=== PATIENT | female | born 1950 | race Hispanic/Latino ===

== ENCOUNTER 2018-04-22 11:34 | Emergency (ER) | payer MEDICARE ==
[~2018-04-22 11:34] MED LIST: ACET-2247 PO; AMLO5TAB4 PO; ATOR40TA69 PO; CARV12.511 PO; CINA90TA PO; FISH1CAP27 PO; FOLI0.8T PO; FOLI1TAB61 PO; FOLI1TAB85 PO; GUAI240S8 PO; LORA10TA7 PO; LOSA100T2 PO; MECL25TA3 PO; POLY30DR OP; RANI150T7 PO; SERT25TA5 PO; SEVE800 PO; SEVE800T7 PO; VITA400C70 PO
[2018-04-22 12:30] LABS: BASOPHILS % (AUTO) 1.4 % (0.0-5.0); EOSINOPHILS % (AUTO) 3.4 % (0.0-8.0); HEMATOCRIT 32.2 % (36-48); MEAN CORPUSCULAR HEMOGLOBIN 32.7 pg (27.0-33.0); MEAN CORPUSCULAR HGB CONC 33.9 g/dL (32.0-36.0); MEAN CORPUSCULAR VOLUME 96.4 fL (79-99); NEUTROPHILS % (AUTO) 76.2 % (40.0-77.0); NUCLEATED RED BLOOD CELLS 0.1 % (0.0-0.19); PLATELET COUNT (AUTO) 101 K/uL (130-400); RED BLOOD CELL COUNT(AUTO) 3.34 MIL/uL (4.00-5.50); RED CELL DISTRIBUTION WIDTH 15.2 % (11.0-15.5); WHITE BLOOD COUNT (AUTO) 5.3 K/uL (4.8-10.8)
[2018-04-22 12:40] LABS: CREATININE 3.9 mg/dL (0.5-1.5); POTASSIUM 4.7 mmol/L (3.5-5.1)
== END 2018-04-22 14:44 | disposition home or self-care (01) ==
LOC: EDH 11:34
DX: S09.90XA Unspecified injury of head, initial encounter (principal); R42 Dizziness and giddiness; M54.2 Cervicalgia; N18.6 End stage renal disease; I50.9 Heart failure, unspecified; Z95.810 Presence of automatic (implantable) cardiac defibrillator; Z88.8 Allergy status to other drugs, medicaments and biological substances; Z99.2 Dependence on renal dialysis; W18.39XA Other fall on same level, initial encounter; Y93.01 Activity, walking, marching and hiking; Y92.89 Other specified places as the place of occurrence of the external cause; Y99.8 Other external cause status
CPT/HCPCS: 36415; 70450; 72125; 73030; 80048; 84484; 85025; 93005

== ENCOUNTER → 2019-02-05 | Outpatient (CLI) | payer MEDICARE ==
[~2019-02-05] MED LIST changes: -SEVE800 PO; -SEVE800T7 PO; +SUCR500T PO
== END | disposition home or self-care (01) ==
LOC: RAH 10:00
PROVIDERS: ATTEND Internal Medicine
DX: N63.21 Unspecified lump in the left breast, upper outer quadrant (principal); R91.8 Other nonspecific abnormal finding of lung field; E78.2 Mixed hyperlipidemia; I10 Essential (primary) hypertension
CPT/HCPCS: 76641; 77066

== ENCOUNTER → 2019-02-23 | Outpatient (CLI) | payer MEDICARE ==
[2019-02-23 08:57] LABS: INR 0.99 (0.85-1.15); PARTIAL THROMBOPLASTIN TIME 26.4 SEC (26.3-35.5); PROTHROMBIN TIME 10.4 SEC (9.6-11.6)
== END | disposition home or self-care (01) ==
LOC: RAH 08:16 → EDSTATUS 10:00
PROVIDERS: ATTEND Internal Medicine
DX: N63.22 Unspecified lump in the left breast, upper inner quadrant (principal); I13.2 Hypertensive heart and chronic kidney disease with heart failure and with stage 5 chronic kidney disease, or end stage renal disease; I50.42 Chronic combined systolic (congestive) and diastolic (congestive) heart failure; E11.22 Type 2 diabetes mellitus with diabetic chronic kidney disease; N18.6 End stage renal disease; E78.5 Hyperlipidemia, unspecified; Z99.2 Dependence on renal dialysis
CPT/HCPCS: 36415; 76642; 85610; 85730

== ENCOUNTER → 2019-05-19 | Outpatient (CLI) | payer MEDICARE ==
[~2019-05-19] MED LIST changes: +VITA-164 PO; -VITA400C70 PO
== END | disposition home or self-care (01) ==
LOC: RAH 09:39
PROVIDERS: ATTEND Otolaryngology Plastic Surgery within the Head & Neck
DX: R13.10 Dysphagia, unspecified (principal); K21.9 Gastro-esophageal reflux disease without esophagitis
CPT/HCPCS: 74220

== ENCOUNTER → 2020-12-09 | Outpatient (CLI) | payer MEDICARE ==
[~2020-12-09] MED LIST changes: -FOLI0.8T PO; +FOLI0.8T3 PO; +SERT-438 PO; -SERT25TA5 PO
== END | disposition home or self-care (01) ==
LOC: RAH 11:21
PROVIDERS: ATTEND Internal Medicine Cardiovascular Disease
DX: I51.7 Cardiomegaly (principal); J44.9 Chronic obstructive pulmonary disease, unspecified; R09.89 Other specified symptoms and signs involving the circulatory and respiratory systems
CPT/HCPCS: 71046

== ENCOUNTER 2021-10-05 21:15 | Emergency (ER) | payer MEDICARE ==
[~2021-10-05] VITALS: Ht 154.9 cm; Wt 73.0 kg
[2021-10-05 22:30] VITALS: BP 162/85
== END 2021-10-05 22:59 | disposition home or self-care (01) ==
LOC: EDH 21:15
DX: S80.02XA Contusion of left knee, initial encounter (principal); S00.03XA Contusion of scalp, initial encounter; S09.90XA Unspecified injury of head, initial encounter; I10 Essential (primary) hypertension; M19.90 Unspecified osteoarthritis, unspecified site; Z79.899 Other long term (current) drug therapy; Z98.890 Other specified postprocedural states; W01.0XXA Fall on same level from slipping, tripping and stumbling without subsequent striking against object, initial encounter; Y93.89 Activity, other specified; Y92.89 Other specified places as the place of occurrence of the external cause; Y99.8 Other external cause status
CPT/HCPCS: 70450; 73562

== ENCOUNTER 2021-12-12 06:07 | Day surgery (SDC) | payer MEDICARE ==
[2021-12-07 14:35] LABS: BASOPHILS % (AUTO) 1.5 % (0.0-5.0); EOSINOPHILS % (AUTO) 1.7 % (0.0-8.0); HEMATOCRIT 36.4 % (36-48); LYMPHOCYTES % (AUTO) 24.7 % (21.0-51.0); MEAN CORPUSCULAR HEMOGLOBIN 31.9 pg (27.0-33.0); MEAN CORPUSCULAR HGB CONC 32.4 g/dL (32.0-36.0); MEAN CORPUSCULAR VOLUME 98.4 fL (79-99); MONOCYTES % (AUTO) 9.4 % (3.0-13.0); NEUTROPHILS % (AUTO) 62.3 % (40.0-77.0); PLATELET COUNT (AUTO) 89 K/uL (130-400); RED CELL DISTRIBUTION WIDTH 13.5 % (11.0-15.5); WHITE BLOOD COUNT (AUTO) 4.8 K/uL (4.8-10.8)
[2021-12-07 14:48] LABS: CREATININE 5.6 mg/dL (0.5-1.5); POTASSIUM 5.5 mmol/L (3.5-5.1)
[2021-12-07 14:49] LABS: INR 0.99 (0.85-1.15); PROTHROMBIN TIME 10.8 SEC (9.6-11.6)
[2021-12-07 14:50] LABS: PARTIAL THROMBOPLASTIN TIME 28.2 SEC (26.3-35.5)
[2021-12-07 15:04] LABS: B-TYPE NATRIURETIC PEPTIDE 3890 pg/mL (0-100)
[2021-12-11 18:14] VITALS: BP_SYST 186; BP_SYST 198; BP_DIAS 64; BP_DIAS 78
[2021-12-12] VITALS (9 sets, daily range): BP systolic 143–214; BP diastolic 16–87
[~2021-12-12] VITALS: Ht 154.9 cm; Wt 69.3 kg
[~2021-12-12 06:07] MED LIST changes: +0.9% NACL 500ML IV.SOLN 500 ML IV SCH
[2021-12-12] MEDS ORDERED: DICL20GE TP (07:11)
[2021-12-12] MEDS ORDERED: FLUT16H NASAL (07:11)
[2021-12-12] MEDS ORDERED: OMEP20CA12 PO (07:11)
[2021-12-12] MEDS ORDERED: SACU1TAB7 PO (07:11)
[2021-12-12] MEDS ORDERED: BIMA12.5OS OU (07:11)
[2021-12-12] MEDS ORDERED: SEVE2.4P3 PO (07:11)
[2021-12-12] MEDS ORDERED: SODIUM BICARB 50MEQ 50ML VIAL 50 ML ONE (07:15)
[2021-12-12] MEDS ORDERED: NITROGLYCERIN 50MG VIAL ONE (07:15)
[2021-12-12] MEDS ORDERED: LIDOCAINE HCL 400MG/20ML VIAL ONE (07:16)
[2021-12-12] MEDS ORDERED: IOHEXOL-350 50ML VIAL IV ONE (07:16)
[2021-12-12] MEDS ORDERED: IOHEXOL 350 MG/ML 100ML INFUS..BTL IV ONE (07:16)
[2021-12-12] MEDS ORDERED: MIDAZOLAM HCL 1 MG/ML 2ML VIAL ONE (07:48)
[2021-12-12] MEDS ORDERED: FENTANYL CITRATE PF 50 MCG/1 ML 2ML VIAL ONE (07:48)
[2021-12-12] MEDS ORDERED: LABETALOL 20MG VIAL IV ONE (08:17)
== END 2021-12-12 11:30 | disposition home or self-care (01) ==
LOC: DAH 06:07
PROVIDERS: ATTEND Internal Medicine Cardiovascular Disease
DX: I25.10 Atherosclerotic heart disease of native coronary artery without angina pectoris (principal); I13.2 Hypertensive heart and chronic kidney disease with heart failure and with stage 5 chronic kidney disease, or end stage renal disease; N18.6 End stage renal disease; I50.42 Chronic combined systolic (congestive) and diastolic (congestive) heart failure; E78.00 Pure hypercholesterolemia, unspecified; Z79.01 Long term (current) use of anticoagulants; Z82.49 Family history of ischemic heart disease and other diseases of the circulatory system; Z83.3 Family history of diabetes mellitus; Z79.899 Other long term (current) drug therapy; Z99.2 Dependence on renal dialysis
CPT/HCPCS: 80048; 83880; 85025; 85610; 85730; 36415; 71045; 93005; 93458; C1894 ×2; C1760; J3010; J3490 ×3; J2250; J1644; Q9967 ×2; A4215; A4222; A4221; A4663; A4216; A4606; Q9965; A4223 ×3; 99156; 99157

== ENCOUNTER 2022-08-23 14:12 | Inpatient (IN) | payer OTHER, MEDICARE ==
[~2022-08-23] VITALS: Ht 154.9 cm; Wt 65.6 kg
[~2022-08-23 14:12] MED LIST changes: -0.9% NACL 500ML IV.SOLN 500 ML IV SCH; -ACET-2247 PO; -AMLO5TAB4 PO; +BIMA12.5OS OU; -CINA90TA PO; +DICL20GE TP; -FISH1CAP27 PO; +FLUT16H NASAL; -FOLI0.8T3 PO; -FOLI1TAB61 PO; -GUAI240S8 PO; -LORA10TA7 PO; -LOSA100T2 PO; -MECL25TA3 PO; +OMEP20CA12 PO; -POLY30DR OP; -RANI150T7 PO; +SACU1TAB7 PO; -SERT-438 PO; +SEVE2.4P3 PO; -SUCR500T PO; -VITA-164 PO
[2022-08-23] MEDS ORDERED: HYDRALAZINE 20MG/ML VIAL IV PRN (17:00)
[2022-08-23 17:06] LABS: BASOPHILS % (AUTO) 0.7 % (0.0-5.0); EOSINOPHILS % (AUTO) 3.1 % (0.0-8.0); HEMATOCRIT 28.7 % (36-48); LYMPHOCYTES % (AUTO) 19.6 % (21.0-51.0); MEAN CORPUSCULAR HEMOGLOBIN 33.1 pg (27.0-33.0); MEAN CORPUSCULAR HGB CONC 32.4 g/dL (32.0-36.0); MEAN CORPUSCULAR VOLUME 102.1 fL (79-99); MONOCYTES % (AUTO) 7.3 % (3.0-13.0); NEUTROPHILS % (AUTO) 68.9 % (40.0-77.0); PLATELET COUNT (AUTO) 83 K/uL (130-400); RED BLOOD CELL COUNT(AUTO) 2.81 MIL/uL (4.00-5.50); RED CELL DISTRIBUTION WIDTH 14.1 % (11.0-15.5); WHITE BLOOD COUNT (AUTO) 5.5 K/uL (4.8-10.8)
[2022-08-23 17:18] LABS: INR 0.95 (0.85-1.15); PROTHROMBIN TIME 10.4 SEC (9.6-11.6)
[2022-08-23 17:20] LABS: PARTIAL THROMBOPLASTIN TIME 26.5 SEC (26.3-35.5)
[2022-08-23 18:23] LABS: CREATININE 5.4 mg/dL (0.5-1.5)
[2022-08-23 18:27] LABS: ALBUMIN 3.4 g/dL (3.5-5.0); TOTAL PROTEIN, SERUM 6.6 g/dL (6.0-8.3)
[2022-08-24] VITALS (35 sets, daily range): BP systolic 117–192; BP diastolic 28–99
[2022-08-24] MEDS ORDERED: AMLO-257 PO (00:37)
[2022-08-24] MEDS ORDERED: SERT-439 PO (00:37)
[2022-08-24 05:51] LABS: BASOPHILS % (AUTO) 0.9 % (0.0-5.0); EOSINOPHILS % (AUTO) 4.3 % (0.0-8.0); HEMATOCRIT 25.6 % (36-48); LYMPHOCYTES % (AUTO) 22.9 % (21.0-51.0); MEAN CORPUSCULAR HEMOGLOBIN 32.4 pg (27.0-33.0); MEAN CORPUSCULAR VOLUME 101.2 fL (79-99); MONOCYTES % (AUTO) 8.4 % (3.0-13.0); NEUTROPHILS % (AUTO) 63.1 % (40.0-77.0); PLATELET COUNT (AUTO) 80 K/uL (130-400); RED BLOOD CELL COUNT(AUTO) 2.53 MIL/uL (4.00-5.50); RED CELL DISTRIBUTION WIDTH 14.1 % (11.0-15.5); WHITE BLOOD COUNT (AUTO) 4.6 K/uL (4.8-10.8)
[2022-08-24 06:06] LABS: CREATININE 6.3 mg/dL (0.5-1.5); MAGNESIUM 2.3 mg/dL (1.80-2.40); POTASSIUM 5.4 mmol/L (3.5-5.1); TOTAL PROTEIN, SERUM 5.8 g/dL (6.0-8.3)
[2022-08-24] MEDS ORDERED: KAYEXALATE 15GM/60ML RC SCH (08:30)
[2022-08-24 08:54] LABS: HEMATOCRIT 27.5 % (36-48); MEAN CORPUSCULAR HEMOGLOBIN 32.5 pg (27.0-33.0); MEAN CORPUSCULAR HGB CONC 31.3 g/dL (32.0-36.0); MEAN CORPUSCULAR VOLUME 103.8 fL (79-99); RED BLOOD CELL COUNT(AUTO) 2.65 MIL/uL (4.00-5.50); RED CELL DISTRIBUTION WIDTH 14.2 % (11.0-15.5); WHITE BLOOD COUNT (AUTO) 5.4 K/uL (4.8-10.8)
[2022-08-24 09:03] LABS: CREATININE 6.4 mg/dL (0.5-1.5); POTASSIUM 5.7 mmol/L (3.5-5.1)
[2022-08-24 09:06] LABS: INR 0.95 (0.85-1.15); PROTHROMBIN TIME 10.4 SEC (9.6-11.6)
[2022-08-24 09:07] LABS: PARTIAL THROMBOPLASTIN TIME 26.7 SEC (26.3-35.5)
[2022-08-24] MEDS ORDERED: HEPARIN 1,000 UNIT VIAL ONE (09:29)
[2022-08-24] MEDS ORDERED: LIDOCAINE HCL 400MG/20ML VIAL ONE (09:29)
[2022-08-24] MEDS ORDERED: FENTANYL CITRATE PF 50 MCG/1 ML 2ML VIAL ONE ×2 (09:30→14:55)
[2022-08-24] MEDS: ONDANSETRON 4MG INJ IVP PRN ×2 (12:23→22:25)
[2022-08-24 12:40] LABS: ALBUMIN 3.1 g/dL (3.5-5.0); CREATININE 6.5 mg/dL (0.5-1.5); POTASSIUM 5.8 mmol/L (3.5-5.1); TOTAL PROTEIN, SERUM 5.8 g/dL (6.0-8.3)
[2022-08-24] MEDS ORDERED: PROPOFOL 10 MG/ML 20ML VIAL IV ONE (12:59)
[2022-08-24] MEDS ORDERED: LIDOCAINE PF 100MG/5ML (2%) SYRINGE 5ML ONE (12:59)
[2022-08-24] MEDS ORDERED: CLINDAMYCIN IVPB 900MG/50ML 50 ML IV ONE (14:09)
[2022-08-24] MEDS ORDERED: EPHEDRINE SULFATE 50 MG/ML AMPULE ONE (14:55)
[2022-08-24] MEDS ORDERED: DEXAMETHASONE SOD PHOSPHATE 4 MG/ML 1ML VIAL ONE (15:17)
[2022-08-24] MEDS ORDERED: ONDANSETRON 4MG INJ ONE (15:17)
[2022-08-24] MEDS: CLINDAMYCIN IVPB 600MG/50ML 50 ML IV SCH (22:14)
[2022-08-25] VITALS (21 sets, daily range): BP systolic 90–174; BP diastolic 31–58
[2022-08-25 05:59] LABS: BASOPHILS % (AUTO) 0.4 % (0.0-5.0); HEMATOCRIT 23.1 % (36-48); LYMPHOCYTES % (AUTO) 14.2 % (21.0-51.0); MEAN CORPUSCULAR HEMOGLOBIN 32.9 pg (27.0-33.0); MEAN CORPUSCULAR HGB CONC 31.2 g/dL (32.0-36.0); MEAN CORPUSCULAR VOLUME 105.5 fL (79-99); MONOCYTES % (AUTO) 5.2 % (3.0-13.0); PLATELET COUNT (AUTO) 73 K/uL (130-400); RED BLOOD CELL COUNT(AUTO) 2.19 MIL/uL (4.00-5.50); RED CELL DISTRIBUTION WIDTH 14.2 % (11.0-15.5); WHITE BLOOD COUNT (AUTO) 5.4 K/uL (4.8-10.8)
[2022-08-25] MEDS: CLINDAMYCIN IVPB 600MG/50ML 50 ML IV SCH ×2 (06:09→14:00)
[2022-08-25 06:16] LABS: ALBUMIN 2.9 g/dL (3.5-5.0); PHOSPHORUS 8.2 mg/dL (2.5-4.9); TOTAL PROTEIN, SERUM 5.6 g/dL (6.0-8.3)
[2022-08-25 06:29] LABS: CREATININE 7.9 mg/dL (0.5-1.5); POTASSIUM 6.4 mmol/L (3.5-5.1)
[2022-08-25] MEDS ORDERED: SODIUM ZIRCONIUM CYCLOSILICATE 5 GM POWD.PACK PO SCH (07:00)
[2022-08-25] MEDS: LANSOPRAZOLE 15 MG SOLU TAB PO SCH (09:24)
[2022-08-25] MEDS: SEVELAMER HCL 800 MG TABLET PO SCH ×2 (11:28→16:43)
[2022-08-25] MEDS ORDERED: HEPARIN 5,000 UNIT VIAL IJ SCH (12:00)
[2022-08-25 13:52] LABS: HEMATOCRIT 23.7 % (36-48)
[2022-08-25] MEDS: ATORVASTATIN 40 MG TABLET PO SCH (20:23)
[2022-08-25] MEDS: ACETAMINOPHEN 325 MG TAB PO PRN (20:43)
[2022-08-26 02:29] LABS: HEPATITIS B SURFACE ANTIGEN Non-Reactive (Nonreactive)
[2022-08-26 03:40] VITALS: BP 133/44
[2022-08-26 04:23] LABS: EOSINOPHILS % (AUTO) 1.9 % (0.0-8.0); HEMATOCRIT 21.7 % (36-48); LYMPHOCYTES % (AUTO) 23.8 % (21.0-51.0); MEAN CORPUSCULAR HEMOGLOBIN 32.5 pg (27.0-33.0); MEAN CORPUSCULAR HGB CONC 31.3 g/dL (32.0-36.0); MEAN CORPUSCULAR VOLUME 103.8 fL (79-99); MONOCYTES % (AUTO) 11.1 % (3.0-13.0); NEUTROPHILS % (AUTO) 61.7 % (40.0-77.0); PLATELET COUNT (AUTO) 68 K/uL (130-400); RED BLOOD CELL COUNT(AUTO) 2.09 MIL/uL (4.00-5.50); RED CELL DISTRIBUTION WIDTH 14.5 % (11.0-15.5); WHITE BLOOD COUNT (AUTO) 4.2 K/uL (4.8-10.8)
[2022-08-26 05:00] LABS: ALBUMIN 2.8 g/dL (3.5-5.0); CREATININE 5.2 mg/dL (0.5-1.5); MAGNESIUM 2.2 mg/dL (1.80-2.40); POTASSIUM 4.2 mmol/L (3.5-5.1); TOTAL PROTEIN, SERUM 5.5 g/dL (6.0-8.3)
[2022-08-26 08:01] VITALS: BP 115/33
[2022-08-26] MEDS: AMLODIPINE 5 MG TAB PO SCH (08:10)
[2022-08-26] MEDS: SEVELAMER HCL 800 MG TABLET PO SCH ×3 (08:26→16:09)
[2022-08-26] MEDS: Vitamin B Complex/Vit C/Folic Acid PO SCH (08:26)
[2022-08-26] MEDS: LANSOPRAZOLE 15 MG SOLU TAB PO SCH (08:27)
[2022-08-26 12:00] VITALS: BP 151/55
[2022-08-26 17:08] VITALS: BP 148/53
[2022-08-26 19:00] VITALS: BP 119/50
[2022-08-26] MEDS: ACETAMINOPHEN 325 MG TAB PO PRN (20:47)
[2022-08-26] MEDS: ATORVASTATIN 40 MG TABLET PO SCH (20:47)
[2022-08-26 23:30] VITALS: BP 152/51
[2022-08-27] VITALS (20 sets, daily range): BP systolic 104–162; BP diastolic 26–83
[2022-08-27] MEDS: ACETAMINOPHEN 325 MG TAB PO PRN (03:52)
[2022-08-27 05:34] LABS: BASOPHILS % (AUTO) 0.6 % (0.0-5.0); EOSINOPHILS % (AUTO) 2.7 % (0.0-8.0); HEMATOCRIT 22.2 % (36-48); MEAN CORPUSCULAR HEMOGLOBIN 32.3 pg (27.0-33.0); MEAN CORPUSCULAR HGB CONC 31.5 g/dL (32.0-36.0); MEAN CORPUSCULAR VOLUME 102.3 fL (79-99); MONOCYTES % (AUTO) 11.2 % (3.0-13.0); NEUTROPHILS % (AUTO) 65.1 % (40.0-77.0); PLATELET COUNT (AUTO) 79 K/uL (130-400); RED BLOOD CELL COUNT(AUTO) 2.17 MIL/uL (4.00-5.50); RED CELL DISTRIBUTION WIDTH 14.5 % (11.0-15.5); WHITE BLOOD COUNT (AUTO) 4.9 K/uL (4.8-10.8)
[2022-08-27 05:49] LABS: CREATININE 7.2 mg/dL (0.5-1.5); PHOSPHORUS 6.1 mg/dL (2.5-4.9); POTASSIUM 4.6 mmol/L (3.5-5.1)
[2022-08-27] MEDS: LANSOPRAZOLE 15 MG SOLU TAB PO SCH (09:11)
[2022-08-27] MEDS: Vitamin B Complex/Vit C/Folic Acid PO SCH (09:13)
[2022-08-27] MEDS: AMLODIPINE 5 MG TAB PO SCH (09:13)
[2022-08-27] MEDS: SEVELAMER HCL 800 MG TABLET PO SCH ×3 (09:14→17:04)
== END 2022-08-27 19:38 | disposition home or self-care (01) | DRG 252 ==
LOC: EDH 14:12 → EDHIP 16:58 → 3CH 23:51
PROVIDERS: ADMIT Hospitalist; ATTEND Hospitalist
PROC: 06HM33Z Insertion of Infusion Device into Right Femoral Vein, Percutaneous Approach (ICD-10-PCS; 2022-08-24)
PROC: B54BZZA Ultrasonography of Right Lower Extremity Veins, Guidance (ICD-10-PCS; 2022-08-24)
PROC: 03WY0JZ Revision of Synthetic Substitute in Upper Artery, Open Approach (ICD-10-PCS; principal; 2022-08-24 14:26)
PROC: 5A1D70Z Performance of Urinary Filtration, Intermittent, Less than 6 Hours Per Day (ICD-10-PCS; 2022-08-25)
PROC: 5A1D70Z Performance of Urinary Filtration, Intermittent, Less than 6 Hours Per Day (ICD-10-PCS; 2022-08-27)
PROC: 30233N1 Transfusion of Nonautologous Red Blood Cells into Peripheral Vein, Percutaneous Approach (ICD-10-PCS; 2022-08-27)
DX: T82.838A Hemorrhage due to vascular prosthetic devices, implants and grafts, initial encounter (principal); N18.6 End stage renal disease; I13.2 Hypertensive heart and chronic kidney disease with heart failure and with stage 5 chronic kidney disease, or end stage renal disease; I42.0 Dilated cardiomyopathy; I82.C12 Acute embolism and thrombosis of left internal jugular vein; Y83.8 Other surgical procedures as the cause of abnormal reaction of the patient, or of later complication, without mention of misadventure at the time of the procedure; I50.9 Heart failure, unspecified; E11.22 Type 2 diabetes mellitus with diabetic chronic kidney disease; E78.00 Pure hypercholesterolemia, unspecified; E11.51 Type 2 diabetes mellitus with diabetic peripheral angiopathy without gangrene; E87.5 Hyperkalemia; D64.9 Anemia, unspecified; I73.9 Peripheral vascular disease, unspecified; Z99.2 Dependence on renal dialysis; Z95.810 Presence of automatic (implantable) cardiac defibrillator; Z91.199 Patient's noncompliance with other medical treatment and regimen due to unspecified reason
CPT/HCPCS: 36415; 36430; 36558; 71045; 77001; 80048; 80053; 82948; 83735; 84100; 84132; 85014; 85018; 85025; 85027; 85610; 85730; 86704; 86706; 86850; 86900; 86901; 86923; 87340; 90935; C1750; G0378; J0360; J1100; J1644; J2001; J2405; J2704; J3010; J3490; P9016